=== PATIENT | male | born 1940 | race Hispanic/Latino ===

== ENCOUNTER 2019-04-26 13:25 | Emergency (ER) | payer OTHER ==
--- NOTE | 2019-04-26 14:41 | RAD REPORT ---
EXAM DESCRIPTION: RAD - Chest Single View - 04/26/2019 2:27 pm CLINICAL HISTORY: pleuritic pain Chest pain. COMPARISON: Chest Pa And Lat (2 Views) dated 10/17/2016; CHEST PA AND LAT 2 VIEW dated 02/07/2009 FINDINGS: Portable technique limits examination quality. Opacities are present in both lung bases, greater on the right, with a small right pleural effusion. Findings are suspicious for aspiration or pneumonia. The heart is normal in size. No displaced fractu res.
[2019-04-26 14:50] LABS: Absolute Lymphocytes (CBC) 2.1 K/uL (0.7-4.9); Basophils % 0.5 % (0-1.3); Hematocrit 41.5 % (39.6-49.0); Lymphocytes % 25.3 % (15.3-44.8); MPV 8.9 fL (7.6-11.3); RBC Red Blood Cell Count 4.65 M/uL (4.33-5.43)
[2019-04-26 15:06] LABS: Albumin 3.4 g/dL (3.4-5.0); Bilirubin Direct 0.1 mg/dL (0-0.2); Bilirubin Total 0.6 mg/dL (0.2-1.0); Potassium 4.1 mmol/L (3.5-5.1); Protein, Total 7.8 g/dL (6.4-8.2)
--- NOTE | 2019-04-26 16:17 | RAD REPORT ---
EXAM DESCRIPTION: CT - Angio Aorta For Dissection - 04/26/2019 3:39 pm CLINICAL HISTORY: back pain radiating up to neck COMPARISON: Chest films same date TECHNIQUE: Dynamically enhanced 3 mm thick images of the chest, abdomen, and upper pelvis were obtai josefina during administration of approximately 150mL Isovue 370 IV contrast. Sagittal and coronal reconst ruction images were generated using MIP and reviewed. Exam utilizes a protocol to evaluate entire cou rse of the aorta. All CT scans are performed using dose optimization technique as appropriate and may include automated exposure control or mA/KV adjustment according to patient size. FINDINGS: Aorta is normal in diameter with no dissection or other acute aortic findings. Reconstruct ion images show no significant findings. Pulmonary arteries are normal as well. No cardiomegaly, pericardial thickening or pericardial effusio n. Posterior gutter atelectasis changes present. No acute lung parenchymal process. No pleural thickenin g, pleural effusion or pneumothorax. No abnormal mediastinal or hilar mass or lymphadenopathy seen. No chest wall mass or abnormal axillar y lymphadenopathy. Celiac, SMA and renal arteries show no suspicious findings. Solid abdominal viscera and bowel show no significant findings. Fatty infiltration changes in the liver. Prominent diverticulosis without dive rticulitis. No mass or abnormal lymphadenopathy. No free air, free fluid or inflammatory stranding. No urinary bladder abnormality. Prominent degenerative change L5-S1 disc level. IMPRESSION: Negative CT scan of the aorta. Posterior gutter atelectasis. No acute lung parenchymal process.
[2019-04-26 16:22] LABS: Urine Blood NEGATIVE (NEG); Urine Glucose NEGATIVE (NEG); Urine Protein NEGATIVE (NEG); Urine Specific Gravity 1.025 (1.005-1.030)
[2019-04-26 16:23] LABS: Urine Bacteria <20 /HPF (NONE SEEN); Urine RBC <5 /HPF (NONE SEEN)
[2019-04-26 16:24] LABS: Urine Culture Reflex Order NOT NEEDED
--- NOTE | 2019-04-26 16:55 | EKG ---
Test Date: 2019-04-26 Test Time: 14:25:14 Plug Overwrap Machine Tender: CRISTOBAL MEASUREMENT RESULTS: Intervals: Rate: 82 AK: 126 QRSD: 78 QT: 370 QTc: 432 [place]: P: 41 AK: 126 QRS: 2 T: 43 INTERPRETIVE STATEMENTS: Sinus rhythm with premature atrial complexes Otherwise normal ECG Compared to ECG 10/17/2016 08:36:48 Atrial premature complex(es) now present Electronically Signed On 04-26-19 16:55:06 CDT by Mukesh Lezama
--- NOTE | 2019-04-26 17:13 | ER ---
Nurse's Notes [facility] Name: Sobia Stoll Age: 78 yrs Sex: Male : 1940 Arrival Date: 04/26/2019 Time: 13:33 Bed 6 Private MD: Diagnosis: Muscle spasm of back;Atelectasis Presentation: 04/26 13:35 Presenting complaint: Patient states: "I started with back pain (left low back) and now aa5 the pain is on my right shoulder and my stomach (RUQ)". Pt denies nausea/vomiting. Pt also reports decreased appetite x 1 month ago. Pt states "I am going through a very difficult time right now, I lost my and a daughter at the same time". Transition of care: patient was not received from another setting of care. Onset of symptoms was April 2019. Risk Assessment: Do you want to hurt yourself or someone else? Patient reports no desire to harm self or others. Initial Sepsis Screen: Does the patient meet any 2 criteria? No. Patient's initial sepsis screen is negative. Does the patient have a suspected source of infection? No. Patient's initial sepsis screen is negative. Care prior to arrival: None. 13:35 Acuity: ALTA 3 aa5 13:35 Method Of Arrival: Ambulatory aa5 Historical: - Allergies: 13:34 No Known Allergies; aa5 - Home Meds: 13:34 None [Active]; aa5 - PMHx: 13:34 None; aa5 - PSHx: 13:34 Hernia repair; aa5 - Immunization history:: Adult Immunizations unknown. - Social history:: Smoking status: Patient/guardian denies using tobacco. - Ebola Screening: : No symptoms or risks identified at this time. - Family history:: not pertinent. - Hospitalizations: : No recent hospitalization is reported. Screenin:20 Abuse screen: Denies threats or abuse. Denies injuries from another. Nutritional ph screening: No deficits noted. Nutritional screening: decreased appetite x 1 month. Tuberculosis screening: No symptoms or risk factors identified. Fall Risk None identified. Assessment: 14:17 General: Appears in no apparent distress. uncomfortable, well groomed, Behavior is ph calm, cooperative, appropriate for age, Denies fever. Pain: Complains of pain in right upper quadrant Pain radiates to R shoulder and back. Neuro: Level of Consciousness is awake, alert, obeys commands, Oriented to person, place, time, situation. Cardiovascular: Denies chest pain, nausea, shortness of breath, vomiting, Capillary refill < 3 seconds in bilateral fingers Patient's skin is warm and dry. Respiratory: Airway is patent Respiratory effort is even, unlabored. GI: Abdomen is round Abd is non tender X 4 quads Reports upper abdominal pain, constipation, diarrhea, Patient currently denies bloody stool, nausea, vomiting. : Reports pain in right in lower back Denies burning with urination, urinary frequency. Derm: Skin is intact, Skin is pink, warm \\T\\ dry. Musculoskeletal: Circulation, motion, and sensation intact. Range of motion: intact in all extremities. 15:49 Reassessment: Patient appears in no apparent distress at this time. Patient and/or iw family updated on plan of care and expected duration. Pain level reassessed. Patient is alert, oriented x 3, equal unlabored respirations, skin warm/dry/pink. pt returned from Ct, urine specimen collected. 17:10 Reassessment: Patient appears in no apparent distress at this time. Patient and/or ph family updated on plan of care and expected duration. Pain level reassessed. Patient is alert, oriented x 3, equal unlabored respirations, skin warm/dry/pink. Pt d/c home w/family. Vital Signs: 13:35 BP 132 / 69; Pulse 87; Resp 18 S; Temp 98.5(TE); Pulse Ox 97% on R/A; Weight 81.65 kg aa5 (R); Pain 5/10; 14:30 BP 134 / 71; Pulse 72; Resp 20; Pulse Ox 98% on R/A; ph 16:09 BP 137 / 72; Pulse 68; Resp 18; Pulse Ox 99% on R/A; ph 17:11 BP 136 / 72; Pulse 70; Resp 16; Temp 98.4; Pulse Ox 100% on R/A; ph ED Course: 13:33 Patient arrived in ED. aa5 13:34 Arm band placed on. aa5 13:38 Triage completed. aa5 13:57 Yadira Gill, RN is Primary Nurse. ph 13:59 Patient has correct armband on for positive identification. Bed in low position. Call ph light in reach. Side rails up X2. Pulse ox on. NIBP on. Door closed. Noise minimized. Warm blanket given. 14:00 Initial lab(s) drawn, by me, sent to lab. Inserted saline lock: 20 gauge in right iw antecubital area, using aseptic technique. Blood collected. 14:02 Dl Hoover MD is Attending Physician. rn 14:26 XRAY Chest (1 view) In Process Unspecified. EDMS 14:28 EKG done, by mathematical technician. reviewed by Dl Hoover MD. 3 15:40 CT Aorta for Dissection In Process Unspecified. EDMS 17:07 No provider procedures requiring assistance completed. IV discontinued, intact, iw bleeding controlled, No redness/swelling at site. Pressure dressing applied. Administered Medications: No medications were administered Outcome: 16:57 Discharge ordered by MD. rn 17:11 Discharged to home ambulatory, with family. ph 17:11 Condition: good 17:11 Discharge instructions given to patient, Instructed on discharge instructions, follow up and referral plans. medication usage, Demonstrated understanding of instructions, follow-up care, medications, Prescriptions given X 2. 17:12 Patient left the ED. ph Signatures: Dispatcher [employer] EDMS Connie Redman, RN SUNSHINE iw Dl Hoover MD MD rn Calderon, Audri, RN RN Yadira Whitaker RN RN Kim Nelson 3
--- NOTE | 2019-04-26 17:13 | EDPHYS ---
Physician Documentation [facility] Name: Sobia Stoll Age: 78 yrs Sex: Male : 1940 Arrival Date: 04/26/2019 Time: 13:33 Bed 6 Private MD: ED Physician Dl Hoover HPI: 04/26 14:38 This 78 yrs old Male presents to ER via Ambulatory with complaints of Back rn Pain, Abdominal Pain. 14:38 The patient presents with pain that is acute, with no known mechanism of injury. rn 14:39 The symptoms are located in the left mid back and right mid back. Onset: The rn symptoms/episode began/occurred 3 day(s) ago. The pain radiates to the abdomen and neck. Associated signs and symptoms: Pertinent positives: abdominal pain, Pertinent negatives: chest pain, fever, headache, hematuria, incontinence, nausea, numbness, tingling, urinary retention, vomiting, weakness. The problem was sustained from unknown cause. Modifying factors: The patient symptoms are alleviated by nothing, the patient symptoms are aggravated by any movement. Severity of symptoms: At their worst the symptoms were moderate, in the emergency department the symptoms have improved. The patient has not experienced similar symptoms in the past. Family member states hasn't seen a doctor, recently began complaining of bilateral flank pain that radiates to abdomen and neck, no chest pain. No fever/cough/sob. NO vomiting/diarrhea. Reports moves around and worse with palpation and movement.. Historical: - Allergies: 13:34 No Known Allergies; aa5 - Home Meds: 13:34 None [Active]; aa5 - PMHx: 13:34 None; aa5 - PSHx: 13:34 Hernia repair; aa5 - Immunization history:: Adult Immunizations unknown. - Social history:: Smoking status: Patient/guardian denies using tobacco. - Ebola Screening: : No symptoms or risks identified at this time. - Family history:: not pertinent. - Hospitalizations: : No recent hospitalization is reported. ROS: 14:39 Constitutional: Negative for fever, chills, and weight loss, Eyes: Negative for injury, rn pain, redness, and discharge, Neck: Negative for injury, and swelling, Cardiovascular: Negative for chest pain, palpitations, and edema, Respiratory: Negative for shortness of breath, cough, wheezing, and pleuritic chest pain, Abdomen/GI: Negative for nausea, vomiting, diarrhea, and constipation, MS/Extremity: Negative for injury and deformity, Skin: Negative for injury, rash, and discoloration, Neuro: Negative for weakness, numbness, tingling, and seizure. Exam: 14:39 Constitutional: This is a well developed, well nourished patient who is awake, alert, rn and in no acute distress. Pain when trying to go from sitting to laying position and lay down. Head/Face: Normocephalic, atraumatic. Eyes: Pupils equal round and reactive to light, extra-ocular motions intact. Lids and lashes normal. Conjunctiva and sclera are non-icteric and not injected. Cornea within normal limits. Periorbital areas with no swelling, redness, or edema. ENT: MMM Neck: Trachea midline, no thyromegaly or masses palpated, and no cervical lymphadenopathy. Supple, full range of motion without nuchal rigidity, or vertebral point tenderness. No Meningismus. Cardiovascular: Regular rate and rhythm. No pulse deficits. Respiratory: Lungs have equal breath sounds bilaterally, clear to auscultation. No increased work of breathing, no retractions or nasal flaring. Abdomen/GI: soft, non-tender Back: No spinal tenderness. No costovertebral tenderness. Full range of motion. MS/ Extremity: Pulses equal, no cyanosis. Neurovascular intact. Full, normal range of motion. Equal circumference. Neuro: Awake and alert, GCS 15, oriented to person, place, time, and situation. Cranial nerves II-XII grossly intact. Motor strength 5/5 in all extremities. Sensory grossly intact. Cerebellar exam normal. Normal gait. Vital Signs: 13:35 BP 132 / 69; Pulse 87; Resp 18 S; Temp 98.5(TE); Pulse Ox 97% on R/A; Weight 81.65 kg aa5 (R); Pain 5/10; 14:30 BP 134 / 71; Pulse 72; Resp 20; Pulse Ox 98% on R/A; ph 16:09 BP 137 / 72; Pulse 68; Resp 18; Pulse Ox 99% on R/A; ph 17:11 BP 136 / 72; Pulse 70; Resp 16; Temp 98.4; Pulse Ox 100% on R/A; ph MDM: 14:02 Patient medically screened. rn 16:48 Differential diagnosis: osteoarthritis, pleurisy, pneumonia, muscle spasm, muscle rn strain. Data reviewed: vital signs, nurses notes, lab test result(s), EKG, radiologic studies, CT scan, plain films, and as a result, I will discharge patient. Counseling: I had a detailed discussion with the patient and/or guardian regarding: the historical points, exam findings, and any diagnostic results supporting the discharge/admit diagnosis, lab results, radiology results, the need for outpatient follow up, to return to the emergency department if symptoms worsen or persist or if there are any questions or concerns that arise at home. Special discussion: I discussed with the patient/guardian in detail that at this point there is no indication for admission to the hospital. It is understood, however, that if the symptoms persist or worsen the patient needs to return immediately for re-evaluation. ED course: Neg ct aorta, normal vitals, most likely muscular spasm/strain given moves around and worse with movement, neg UA, will dc home with muscle relaxers and pcp f/u for standard screening exams.. 04/26 14:09 Order name: Basic Metabolic Panel; Complete Time: 16:22 rn 04/26 14:09 Order name: CBC with Diff; Complete Time: 14:54 rn 04/26 14:09 Order name: Creatinine for Radiology; Complete Time: 16:22 rn 04/26 14:09 Order name: Hepatic Function; Complete Time: 16:22 rn 04/26 14:09 Order name: Lipase; Complete Time: 16:22 rn 04/26 14:09 Order name: Urine Microscopic Only; Complete Time: 16:41 rn 04/26 14:09 Order name: IV Saline Lock; Complete Time: 14:35 rn 04/26 14:09 Order name: Labs collected and sent; Complete Time: 14:35 rn 04/26 14:09 Order name: EKG; Complete Time: 14:10 rn 04/26 14:09 Order name: XRAY Chest (1 view); Complete Time: 14:54 rn 04/26 14:09 Order name: CT Aorta for Dissection; Complete Time: 16:41 rn 04/26 14:54 Order name: Blood Culture Adult (2) rn 04/26 14:54 Order name: Procalcitonin; Complete Time: 16:41 rn 04/26 15:55 Order name: Urine Dipstick--Ancillary (enter results); Complete Time: 16:41 bd 04/26 14:09 Order name: Urine Dipstick-Ancillary (obtain specimen); Complete Time: 15:49 rn 04/26 14:09 Order name: EKG - Nurse/Tech; Complete Time: 14:35 rn Administered Medications: No medications were administered Disposition: 04/26/19 16:57 Discharged to Home. Impression: Muscle spasm of back, Atelectasis. - Condition is Stable. - Discharge Instructions: Atelectasis, Adult, Muscle Cramps and Spasms, Back Exercises, [id number]. - Prescriptions for Ultram 50 mg Oral Tablet - take 1 tablet by ORAL route every 6 hours As needed; 20 tablet. Cyclobenzaprine 10 mg Oral Tablet - take 1 tablet by ORAL route every 8 hours As needed; 20 tablet. - Medication Reconciliation Form, Thank You Letter, Antibiotic Education, Prescription Opioid Use form. - Follow up: Private Physician; When: As needed; Reason: Recheck today's complaints, Re-evaluation by your physician. - Problem is new. - Symptoms have improved. Signatures: Dispatcher [employer] EDMS Dl Hoover MD MD rn Calderon, Amanda RN RN aa5 Yadira Gill RN RN ph Corrections: (The following items were deleted from the chart) 14:42 14:39 Constitutional: This is a well developed, well nourished patient who is awake, rn alert, and in no acute distress. Head/Face: Normocephalic, atraumatic. Eyes: Pupils equal round and reactive to light, extra-ocular motions intact. Lids and lashes normal. Conjunctiva and sclera are non-icteric and not injected. Cornea within normal limits. Periorbital areas with no swelling, redness, or edema. ENT: MMM Neck: Trachea midline, no thyromegaly or masses palpated, and no cervical lymphadenopathy. Supple, full range of motion without nuchal rigidity, or vertebral point tenderness. No Meningismus. Cardiovascular: Regular rate and rhythm. No pulse deficits. Respiratory: Lungs have equal breath sounds bilaterally, clear to auscultation. No increased work of breathing, no retractions or nasal flaring. Abdomen/GI: soft, non-tender Back: No spinal tenderness. No costovertebral tenderness. Full range of motion. MS/ Extremity: Pulses equal, no cyanosis. Neurovascular intact. Full, normal range of motion. Equal circumference. Neuro: Awake and alert, GCS 15, oriented to person, place, time, and situation. Cranial nerves II-XII grossly intact. Motor strength 5/5 in all extremities. Sensory grossly intact. Cerebellar exam normal. Normal gait. rn 17:12 16:57 04/26/2019 16:57 Discharged to Home. Impression: Muscle spasm of back; ph Atelectasis. Condition is Stable. Forms are Medication Reconciliation Form, Thank You Letter, Antibiotic Education, Prescription Opioid Use. Follow up: Private Physician; When: As needed; Reason: Recheck today's complaints, Re-evaluation by your physician. Problem is new. Symptoms have improved. rn
[2019-04-26 19:42] VITALS: BP 136/72; TEMP 98.4; O2SAT 100
== END 2019-04-26 17:12 | disposition home or self-care (01) ==
LOC: ER 13:25
DX: M62.830 Muscle spasm of back (principal); J98.11 Atelectasis
CPT/HCPCS: 93005; 87040 ×2; 85025; 80048; 36415; 80076; 83690; 84145; 71275; 74175; 71045; 99284; Q9967; 81003; 81015

== ENCOUNTER 2020-12-09 14:00 | Emergency (ER) | payer OTHER ==
--- OUTSIDE RECORDS SUMMARY | 2020-12-09 14:03 | XMS REPORT | Continuity of Care Document ---
:1940 Author Organization [facility] t Address [address] [place] [address] [address] [place] [address] Care Team Providers Name Role Phone Dae Lam DO Attending Clinician Janes Lee MD Attending Clinician Problems This patient has no known problems. Allergies, Adverse Reactions, Alerts This patient has no known allergies or adverse reactions. Medications This patient has no known medications. Procedures This patient has no known procedures. Encounters Start End Encounter Admission Attending Care Care Encounter Source Date/Time Date/Time Type Type Clinicians Facility Department ID 2020-09-10 2020-09-10 Patient ARELI Lam [id number] 00:00:00 00:00:00 Outreach [facility] [id number] Dae [facility] [id number] [place] [id number] 2020-05-02 2020-05-02 Office ARELI Lee [id number] 18 12:47:48 13:46:35 Visit Cheryl Pritchett [id number] [place] [id number] [place] [id number] nal 059 Building Results This patient has no known results.
[2020-12-09 18:19] LABS: Absolute Lymphocytes (CBC) 2.2 K/uL (0.7-4.9); Basophils % 0.5 % (0-1.3); Hematocrit 42.4 % (39.6-49.0); Lymphocytes % 25.9 % (15.3-44.8); MPV 9.3 fL (7.6-11.3); RBC Red Blood Cell Count 4.89 M/uL (4.33-5.43)
[2020-12-09] MEDS ORDERED: KETOROLAC 30 MG/ML INJ ONE (18:39)
[2020-12-09 18:52] LABS: ALT/SGPT 32 U/L (12-78); Alkaline Phosphatase 53 U/L (45-117); BUN Blood Urea Nitrogen 20 mg/dL (7-18); Bicarbonate 25 mmol/L (21-32); Bilirubin Total 0.4 mg/dL (0.2-1.0); Glucose Level 102 mg/dL (74-106); Protein, Total 8.5 g/dL (6.4-8.2); Sodium Level 139 mmol/L (136-145); Uric Acid 5.2 mg/dL (3.5-7.2)
--- NOTE | 2020-12-09 18:52 | RAD REPORT ---
EXAM DESCRIPTION: RAD - Elbow Left 3 View - 12/09/2020 6:44 pm CLINICAL HISTORY: PAIN COMPARISON: No comparisons FINDINGS: Moderate degenerative changes are present involving the left elbow. No fracture, dislocati on or aggressive marrow lesion.
[2020-12-09 18:53] LABS: AST/SGOT 21 U/L (15-37); Potassium 4.2 mmol/L (3.5-5.1)
--- NOTE | 2020-12-09 18:59 | ER ---
Nurse's Notes [facility] Name: Sobia Stoll Age: 80 yrs Sex: Male : 1940 Arrival Date: 12/09/2020 Time: 14:09 Bed 23 Private MD: Diagnosis: Pain in left elbow;Pain in elbow;Effusion, left elbow;Osteoarthritis, unspecified site-left elbow Presentation: 12/09 14:14 Chief complaint: Patient states: L arm pain from elbow to shoulder for 2 days. No known ss trauma or falls. Received his 1st covid vaccine in his L deltoid 11/30. Coronavirus screen: Client denies travel out of the [place] in the last 14 days. At this time, the client does not indicate any symptoms associated with coronavirus-19. Ebola Screen: Patient denies travel to an Ebola-affected area in the 21 days before illness onset. Initial Sepsis Screen: Does the patient meet any 2 criteria? No. Patient's initial sepsis screen is negative. Does the patient have a suspected source of infection? Yes: Bone or joint infection. Risk Assessment: Do you want to hurt yourself or someone else? Patient reports no desire to harm self or others. Onset of symptoms was December 08, 2020. 14:14 Method Of Arrival: Ambulatory ss 14:14 Acuity: ALTA 3 ss Historical: - Allergies: 14:16 No Known Allergies; ss - PMHx: 14:16 None; ss - PSHx: 14:16 Hernia repair; ss - Immunization history:: Client reports receiving the 1st dose of the Covid vaccine, Flu vaccine is not up to date. - Social history:: Smoking status: Patient denies any tobacco usage or history of. - Family history:: not pertinent. Screenin:00 Abuse screen: Denies threats or abuse. Nutritional screening: No deficits noted. bb Tuberculosis screening: No symptoms or risk factors identified. Fall Risk None identified. Assessment: 18:00 General: Appears in no apparent distress. uncomfortable, Behavior is calm, cooperative. bb Pain: Complains of pain in left arm. Neuro: Level of Consciousness is awake, alert, obeys commands, Oriented to person, place, time, situation. Cardiovascular: Capillary refill < 3 seconds Patient's skin is warm and dry. Respiratory: Respiratory effort is even, unlabored, Respiratory pattern is regular. Derm: Skin is pink, warm \T\ dry. Musculoskeletal: Circulation, motion, and sensation intact. Reports pain in left arm. 18:46 Reassessment: pt states he is feeling better. bb 18:55 Reassessment: pt vomiting Dr Rae notified new orders received pt medicated see OCT.bb 19:24 Reassessment: Patient is alert, oriented x 3, equal unlabored respirations, skin bb warm/dry/pink. pt and family verbalized understanding of and agrees to plan of care discharge instructions given pt ambulated with steady gait to exit accompanied by family Patient states feeling better. Patient states symptoms have improved. Vital Signs: 14:14 BP 131 / 73; Pulse 89; Resp 17; Temp 98.7; Pulse Ox 99% ; Weight 84.37 kg; Height 5 ft. ss 6 in. (167.64 cm); Pain 9/10; 18:45 BP 139 / 73; Pulse 77; Resp 18 S; Pulse Ox 94% on R/A; bb 19:25 BP 110 / 85; Pulse 81; Resp 18 S; Temp 98.5(O); Pulse Ox 95% on R/A; Pain 5/10; bb 14:14 Body Mass Index 30.02 (84.37 kg, 167.64 cm) ss ED Course: 14:09 Patient arrived in ED. mr 14:16 Triage completed. ss 14:17 Arm band placed on. ss 17:49 Kiel Rae MD is Attending Physician. angelita 18:06 Initial lab(s) drawn, by ks, sent to lab. Inserted saline lock: 20 gauge in right jp3 antecubital area, using aseptic technique. Blood collected. Patient maintains SpO2 saturation greater than 95% on room air. 18:16 Bed in low position. Call light in reach. Side rails up X 1. Ice pack to injury. Verbal jp3 reassurance given. Pulse ox on. NIBP on. 18:16 Wound care: ice pack applied. Patient tolerated well. jp3 18:43 Elbow Left 3 View XRAY In Process Unspecified. EDMS 18:44 Azalea Curran, SUNSHINE is Primary Nurse. bb 18:59 Abhinav Bose MD is Referral Physician. angelita 19:25 IV discontinued, intact, bleeding controlled, No redness/swelling at site. Pressure bb dressing applied. 19:25 No provider procedures requiring assistance completed. bb Administered Medications: 18:25 Drug: TORadol (ketorolac) 30 mg Route: IVP; Site: right antecubital; bb 18:46 Follow up: Response: Pain is decreased bb 18:51 Drug: SOLU-Medrol (methylPrednisoLONE) 125 mg Route: IVP; Site: right antecubital; bb 19:23 Follow up: Response: No adverse reaction bb 18:52 Drug: [place] (HYDROcodone-acetaminophen) (7.5 mg-325 mg) 1 tabs {Note: RASS 0.} Route: bb PO; 19:23 Follow up: Response: No adverse reaction bb 18:56 Drug: Zofran (Ondansetron) 4 mg Route: IVP; Site: right antecubital; bb 19:24 Follow up: Response: No adverse reaction bb Outcome: 18:59 Discharge ordered by MD. goldstein 19:25 Discharged to home ambulatory, with family. bouchra 19:25 Condition: stable 19:25 Discharge instructions given to patient, family, Instructed on discharge instructions, follow up and referral plans. no driving heavy equipment, medication usage, Demonstrated understanding of instructions, follow-up care, medications, Prescriptions given X 4. 19:26 Patient left the ED. bb Signatures: Dispatcher [employer] EDMS Kiel Rae MD MD cha Rivera Cris mr Azalea Curran, RN RN Khadijah Vora RN RN Migel Jean jp3 Corrections: (The following items were deleted from the chart) 18:17 18:16 Inserted saline lock: 20 gauge in right antecubital area, using aseptic jp3 technique. Blood collected. jp3 18:17 18:16 Initial lab(s) drawn, by ks, sent to lab. jp3 jp3 18:17 18:16 Patient maintains SpO2 saturation greater than 95% on room air. jp3 jp3
--- NOTE | 2020-12-09 18:59 | EDPHYS ---
Physician Documentation [facility] Name: Sobia Stoll Age: 80 yrs Sex: Male : 1940 Arrival Date: 12/09/2020 Time: 14:09 Bed 23 Private MD: ED Physician Kiel Rae HPI: 12/09 18:09 This 80 yrs old Male presents to ER via Ambulatory with complaints of Arm Pain.angelita 18:09 The patient or guardian complains of decreased range of motion, pain, swelling. The angelita complaints affect the left elbow. Context: The problem was sustained at an unknown location, resulted from unknown cause. Onset: The symptoms/episode began/occurred 1 day(s) ago. Treatment prior to arrival includes: no previous treatment. Modifying factors: The symptoms are alleviated by remaining still, the symptoms are aggravated by movement, bending arm. Severity of symptoms: At their worst the symptoms were mild, moderate, in the emergency department the symptoms are unchanged. The patient has not experienced similar symptoms in the past. Historical: - Allergies: 14:16 No Known Allergies; ss - PMHx: 14:16 None; ss - PSHx: 14:16 Hernia repair; ss - Immunization history:: Client reports receiving the 1st dose of the Covid vaccine, Flu vaccine is not up to date. - Social history:: Smoking status: Patient denies any tobacco usage or history of. - Family history:: not pertinent. ROS: 18:09 Constitutional: Negative for fever, chills, and weight loss, Eyes: Negative for injury, angelita pain, redness, and discharge, ENT: Negative for injury, pain, and discharge, Neck: Negative for injury, pain, and swelling, Cardiovascular: Negative for chest pain, palpitations, and edema, Respiratory: Negative for shortness of breath, cough, wheezing, and pleuritic chest pain, Abdomen/GI: Negative for abdominal pain, nausea, vomiting, diarrhea, and constipation, Back: Negative for injury and pain, : Negative for injury, bleeding, discharge, and swelling, Skin: Negative for injury, rash, and discoloration, Neuro: Negative for headache, weakness, numbness, tingling, and seizure, Psych: Negative for depression, anxiety, suicide ideation, homicidal ideation, and hallucinations, Allergy/Immunology: Negative for hives, rash, and allergies, Endocrine: Negative for neck swelling, polydipsia, polyuria, polyphagia, and marked weight changes, Hematologic/Lymphatic: Negative for swollen nodes, abnormal bleeding, and unusual bruising. 18:09 MS/extremity: Positive for decreased range of motion, pain, swelling, tenderness, of the left elbow. Exam: 18:09 Constitutional: This is a well developed, well nourished patient who is awake, alert, angelita and in no acute distress. Head/Face: Normocephalic, atraumatic. Eyes: Pupils equal round and reactive to light, extra-ocular motions intact. Lids and lashes normal. Conjunctiva and sclera are non-icteric and not injected. Cornea within normal limits. Periorbital areas with no swelling, redness, or edema. ENT: Nares patent. No nasal discharge, no septal abnormalities noted. Tympanic membranes are normal and external auditory canals are clear. Oropharynx with no redness, swelling, or masses, exudates, or evidence of obstruction, uvula midline. Mucous membranes moist. Neck: Trachea midline, no thyromegaly or masses palpated, and no cervical lymphadenopathy. Supple, full range of motion without nuchal rigidity, or vertebral point tenderness. No Meningismus. Chest/axilla: Normal chest wall appearance and motion. Nontender with no deformity. No lesions are appreciated. Cardiovascular: Regular rate and rhythm with a normal S1 and S2. No gallops, murmurs, or rubs. Normal PMI, no JVD. No pulse deficits. Respiratory: Lungs have equal breath sounds bilaterally, clear to auscultation and percussion. No rales, rhonchi or wheezes noted. No increased work of breathing, no retractions or nasal flaring. Abdomen/GI: Soft, non-tender, with normal bowel sounds. No distension or tympany. No guarding or rebound. No evidence of tenderness throughout. Back: No spinal tenderness. No costovertebral tenderness. Full range of motion. Skin: Warm, dry with normal turgor. Normal color with no rashes, no lesions, and no evidence of cellulitis. Neuro: Awake and alert, GCS 15, oriented to person, place, time, and situation. Cranial nerves II-XII grossly intact. Motor strength 5/5 in all extremities. Sensory grossly intact. Cerebellar exam normal. Normal gait. Psych: Awake, alert, with orientation to person, place and time. Behavior, mood, and affect are within normal limits. 18:09 Neuro: Orientation: is normal, appropriate for stated age, no acute changes, Mentation: is normal, appropriate for stated age, no acute changes, Memory: is normal, appropriate for stated age, no acute changes, Cranial nerves: grossly normal, is grossly normal based on the patient's age, no acute changes, Cerebellar function: is grossly normal, is grossly normal based on the patient's age, Motor: is normal, is grossly normal based on the patient's age, no acute changes, Sensation: no obvious gross deficits, appropriate no acute changes, numbness, is not appreciated, Gait: not applicable is steady, appropriate for age, Deep tendon reflexes are 2+ (normal) in the bilateral brachioradialis, bicep, tricep and patellar and Achilles tendons, Babinski testing is normal, seizure activity, is not displayed by the patient. Vital Signs: 14:14 BP 131 / 73; Pulse 89; Resp 17; Temp 98.7; Pulse Ox 99% ; Weight 84.37 kg; Height 5 ft. ss 6 in. (167.64 cm); Pain 9/10; 18:45 BP 139 / 73; Pulse 77; Resp 18 S; Pulse Ox 94% on R/A; bb 19:25 BP 110 / 85; Pulse 81; Resp 18 S; Temp 98.5(O); Pulse Ox 95% on R/A; Pain 5/10; bb 14:14 Body Mass Index 30.02 (84.37 kg, 167.64 cm) ss MDM: 17:49 Patient medically screened. angelita 18:12 Differential diagnosis: closed fracture, contusion, tendonitis. Data reviewed: vital angelita signs, nurses notes, lab test result(s), radiologic studies, plain films. Data interpreted: teletypesetter monitor: not applicable for this patient encounter. rate is 89 beats/min, rhythm is regular, Pulse oximetry: on room air is 99 %. Test interpretation: by ED physician or midlevel provider: plain radiologic studies. Counseling: I had a detailed discussion with the patient and/or guardian regarding: the historical points, exam findings, and any diagnostic results supporting the discharge/admit diagnosis, lab results, radiology results, the need for outpatient follow up, for definitive care, a orthopedic surgeon. 12/09 18:07 Order name: CBC with Diff [facility] 12/09 18:07 Order name: Comprehensive Metabolic Panel [facility] 12/09 18:07 Order name: Uric Acid; Complete Time: 18:58 [facility] 12/09 18:07 Order name: Elbow Left 3 View XRAY; Complete Time: 18:58 [facility] 12/09 18:08 Order name: CBC with Automated Diff; Complete Time: 18:43 EDMS 12/09 18:08 Order name: Comprehensive Metabolic Panel; Complete Time: 18:58 EDMS 12/09 18:07 Order name: Ice pack; Complete Time: 18:17 [facility] Administered Medications: 18:25 Drug: TORadol (ketorolac) 30 mg Route: IVP; Site: right antecubital; bb 18:46 Follow up: Response: Pain is decreased bb 18:51 Drug: SOLU-Medrol (methylPrednisoLONE) 125 mg Route: IVP; Site: right antecubital; bb 19:23 Follow up: Response: No adverse reaction bb 18:52 Drug: [place] (HYDROcodone-acetaminophen) (7.5 mg-325 mg) 1 tabs {Note: RASS 0.} Route: bb PO; 19:23 Follow up: Response: No adverse reaction bb 18:56 Drug: Zofran (Ondansetron) 4 mg Route: IVP; Site: right antecubital; bb 19:24 Follow up: Response: No adverse reaction bb Disposition: 12/09/20 18:59 Discharged to Home. Impression: Pain in left elbow, Pain in elbow, Effusion, left elbow, Osteoarthritis, unspecified site - left elbow. - Condition is Stable. - Discharge Instructions: Joint Pain, Arthritis, Musculoskeletal Pain, Cryotherapy, [id number], Cryotherapy, Joint Pain, [id number]. - Prescriptions for indomethacin 25 mg Oral capsule - take 1 capsule by ORAL route 3 times per day with food; 21 capsule. Tylenol- Codeine #3 300-30 mg Oral Tablet - take 2 tablets by ORAL route every 4-6 hours As needed; 20 tablet. Medrol (Renzo) 4 mg Oral Tablets, Dose Pack - take 1 tablet by ORAL route as directed - follow package instructions; 1 packet. Zofran 4 mg Oral Tablet - take 1 tablet by ORAL route every 12 hours As needed; 20 tablet. - Medication Reconciliation Form, Thank You Letter, Antibiotic Education, Prescription Opioid Use form. - Follow up: Private Physician; When: 2 - 3 days; Reason: Recheck today's complaints, Continuance of care, Re-evaluation by your physician. Follow up: Dr. Abhinav Bose; When: 1 - 2 days; Reason: Recheck today's complaints, Re-evaluation by your physician. - Problem is new. - Symptoms have improved. Signatures: Dispatcher [employer] EDNY Kiel Rae MD MD cha Ballard, Brenda, RN RN Khadijah Vora RN RN ss Corrections: (The following items were deleted from the chart) 19:26 18:59 12/09/2020 18:59 Discharged to Home. Impression: Pain in left elbow; Pain in bb elbow; Effusion, left elbow; Osteoarthritis, unspecified site - left elbow. Condition is Stable. Discharge Instructions: Joint Pain, Musculoskeletal Pain, Cryotherapy, [id number], Cryotherapy, Joint Pain, [id number]-zd-[id number], Arthritis. Prescriptions for indomethacin 25 mg Oral capsule - take 1 capsule by ORAL route 3 times per day with food; 21 capsule, Tylenol-Codeine #3 300-30 mg Oral Tablet - take 2 tablets by ORAL route every 4-6 hours As needed; 20 tablet, Medrol (Renzo) 4 mg Oral Tablets, Dose Pack - take 1 tablet by ORAL route as directed - follow package instructions; 1 packet, Zofran 4 mg Oral Tablet - take 1 tablet by ORAL route every 12 hours As needed; 20 tablet. and Forms are Medication Reconciliation Form, Thank You Letter, Antibiotic Education, Prescription Opioid Use. Follow up: Private Physician; When: 2 - 3 days; Reason: Recheck today's complaints, Continuance of care, Re-evaluation by your physician. Follow up: Dr. Abhinav Bose; When: 1 - 2 days; Reason: Recheck today's complaints, Re-evaluation by your physician. Problem is new. Symptoms have improved. angelita
[2020-12-09] MEDS ORDERED: HYDROCODONE/APAP 7.5/325 MG TAB ONE (19:06)
[2020-12-09] MEDS ORDERED: METHYLPREDNISOLONE 125 MG INJ ONE (19:06)
[2020-12-09] MEDS ORDERED: ONDANSETRON 4 MG/2 ML VIAL ONE (19:11)
[2020-12-09 19:39] VITALS: BP 110/85; TEMP 98.5; O2SAT 95
== END 2020-12-09 19:26 | disposition home or self-care (01) ==
LOC: ER 14:00
DX: M25.422 Effusion, left elbow (principal); M19.022 Primary osteoarthritis, left elbow
CPT/HCPCS: 85025; 36415; 84550; 80053; 73080; 96375; 96374; 99284; J2930; J2405

== ENCOUNTER 2022-10-09 16:33 | Emergency (ER) | payer OTHER ==
[2022-10-09] MEDS ORDERED: ACETAMINOPHEN 500 MG TAB ONE (16:56)
[2022-10-09] MEDS ORDERED: HYDROCODONE/APAP 10/325 TAB ONE (17:12)
[2022-10-09] MEDS ORDERED: DIAZEPAM 5 MG TABLET ONE (17:12)
--- NOTE | 2022-10-09 17:48 | RAD REPORT ---
EXAM DESCRIPTION: CT - [id number] - 10/09/2022 5:24 pm CLINICAL HISTORY: headache, neck pain COMPARISON: Head Brain Wo Cont dated 10/17/2016 TECHNIQUE: Axial thin cut noncontrast CT images of the head were obtained. Axial thin cut noncontrast CT images of the cervical spine were obtained. Multiplanar reformatted images were generated and reviewed. All CT scans are performed using dose optimization technique as appropriate and may include automated exposure control or mA/KV adjustment according to patient size. FINDINGS: CT HEAD WITHOUT CONTRAST: No acute hemorrhage, hydrocephalus or extra-axial collection is identified.No areas of brain edema or midline shift. Mild diffuse parenchymal volume loss. Ventricular caliber is stable. The paranasal sinuses and mastoids are clear.The calvarium is intact. CT CERVICAL SPINE WITHOUT CONTRAST: No fracture or subluxation.No prevertebral soft tissues swelling is identified. Moderate multilevel degenerative changes with endplate and facet remodeling and variable degrees of disc height loss. Fiona tral disc osteophyte complex at C6-7 may contribute to mild central bony canal stenosis. Variable deg niya of neural foraminal narrowing, up to moderate on the left at C6-7 and on the right at C5-6. IMPRESSION: No acute traumatic intracranial or cervical spine findings. Multilevel cervical spine degenerative changes as above. If there is concern for radiculopathy, addit ional evaluation by cervical spine MRI would provide improved assessment.
--- NOTE | 2022-10-09 19:07 | EDPHYS ---
Physician Documentation [facility] Name: Sobia Stoll Age: 81 yrs Sex: Male : 1940 Arrival Date: 10/09/2022 Time: 16:35 Bed 11 Private MD: DAWN Physician Kiel Rae HPI: 10/09 17:00 This 81 yrs old Male presents to ER via Ambulatory with complaints of Stiff jmm Neck, Jaw Pain, Headache. 17:00 The patient or guardian complains of pain. Onset: The symptoms/episode began/occurred jmm gradually, 3 day(s) ago. Associated signs and symptoms: Pertinent negatives: fever. The pain does not radiate. Is a 81-year-old male with history of hyperlipidemia the presents emerged part with complaints of neck pain which began approximately 3 days ago after a long bus ride. Denies fever. Patient states the neck pain radiates into the base of his skull.. Historical: - Allergies: 16:51 No Known Allergies; jh5 - PMHx: 16:51 Hypercholesterolemia; Osteoarthritis; [facility] - Immunization history:: Adult Immunizations up to date. - Social history:: Smoking status: Patient denies any tobacco usage or history of. ROS: 17:00 Constitutional: Negative for fever, chills, and weight loss. jmm 17:00 Neck: Positive for pain with movement. 17:00 All other systems are negative. Exam: 17:00 Constitutional: This is a well developed, well nourished patient who is awake, alert, jmm and in no acute distress. Head/Face: atraumatic. Eyes: EOMI, no conjunctival erythema appreciated ENT: Moist Mucus Membranes 17:00 Chest/axilla: Normal chest wall appearance and motion. Cardiovascular: Regular rate and rhythm. No edema appreciated Respiratory: Normal respirations, no respiratory distress appreciated Abdomen/GI: Non distended Back: Normal ROM Skin: General appearance color normal MS/ Extremity: Moves all extremities, no obvious deformities appreciated, no edema noted to the lower extremities Neuro: Awake and alert Psych: Behavior is normal, Mood is normal, Patient is cooperative and pleasant 17:00 Neck: ROM/movement: Painful range of motion noted to the cervical spine, paraspinal tenderness appreciated, no erythema or induration. Vital Signs: 16:48 BP 145 / 76; Pulse 85; Resp 16; Temp 98.4; Pulse Ox 97% ; Weight 81.65 kg; Height 5 ft. jh5 3 in. (160.02 cm); Pain 8/10; 16:48 Body Mass Index 31.89 (81.65 kg, 160.02 cm) [facility] MDM: 17:00 Patient medically screened. [facility] 19:04 Differential diagnosis: Meningitis, cervical radiculopathy, cervical s cervical jmm spondylosis, abscess, osteoarthritis, muscle spasm. Data reviewed: vital signs, nurses notes. I considered the following discharge prescriptions or medication management in the emergency department Medications were administered in the Emergency Department. See MAR. Counseling: I had a detailed discussion with the patient and/or guardian regarding: the historical points, exam findings, and any diagnostic results supporting the discharge/admit diagnosis, radiology results, the need for outpatient follow up, to return to the emergency department if symptoms worsen or persist or if there are any questions or concerns that arise at home. ED course: Pain partially alleviated in the ED. I did recommend changing pain medication. We will begin the patient on a course of steroids and different muscle relaxer. Advised to follow-up with spine surgery for further evaluation otherwise given strict return precautions.. 10/09 17:01 Order name: CT Head C Spine [facility] 10/09 17:49 Order name: CT; Complete Time: 17:56 EDMS Administered Medications: 17:11 Drug: Valium (diazepam) 5 mg Route: PO; ap3 18:27 Follow up: Response: No adverse reaction ap3 17:11 Drug: [place] (HYDROcodone-acetaminophen) 10 mg-325 mg 1 tabs Route: PO; ap3 18:27 Follow up: Response: No adverse reaction; Pain is decreased ap3 19:14 Drug: Decadron (dexamethasone) 10 mg Route: IM; Site: left deltoid; as6 Disposition Summary: 10/09/22 19:06 Discharge Ordered Location: Home [facility] Condition: Stable [facility] Diagnosis - Strain of muscle, fascia and tendon at neck level jm Followup: jmm - With: Private Physician - When: 2 - 3 days - Reason: Recheck today's complaints, Continuance of care, Re-evaluation by your physician Discharge Instructions: - Discharge Summary Sheet [facility] - Cervical Strain and Sprain Rehab-SportsMed [facility] Forms: - Medication Reconciliation Form [facility] - Thank You Letter [facility] - Antibiotic Education [facility] - Prescription Opioid Use [facility] Prescriptions: - Medrol (Renzo) 4 mg Oral Tablets, Dose Pack - take 1 tablet by ORAL route as directed - follow package instructions; 1 [facility] packet; Refills: 0, Product Selection Permitted - orphenadrine citrate 100 mg Oral Tablet Sustained Release - take 1 tablet by ORAL route 2 times per day As needed; 20 tablet; Refills: 0, [facility] Product Selection Permitted Signatures: Dispatcher [employer] Oswald Guzmán PA PA jmm Prokisch, Amanda, RN RN ap3 Elsie Iqbal RN RN jh5 Rudolph Egan RN RN as6
--- NOTE | 2022-10-09 19:07 | ER ---
Nurse's Notes [facility] Name: Sobia Stoll Age: 81 yrs Sex: Male : 1940 Arrival Date: 10/09/2022 Time: 16:35 Bed 11 Private MD: Diagnosis: Strain of muscle, fascia and tendon at neck level Presentation: 10/09 16:48 Chief complaint: Patient states: neck stiffness; sore to touch posterior neck and jh5 moving up into head and causing jaw locking and stiffness. Went to doctor and was given muscle relaxants yesterday but not helping; noted that patient did ride on a bus all the way to [place] and then rode on a bus all the way back as well. Coronavirus screen: Vaccine status: Patient reports receiving the 2nd dose of the covid vaccine. Client indicates they have traveled out of the [place] in the last 14 days. Client traveled to: [place]; got here 2 days ago. Ebola Screen: Patient negative for fever greater than or equal to 101.5 degrees Fahrenheit, and additional compatible Ebola Virus Disease symptoms Patient denies exposure to infectious person. Patient denies travel to an Ebola-affected area in the 21 days before illness onset. Initial Sepsis Screen: Does the patient meet any 2 criteria? No. Patient's initial sepsis screen is negative. Does the patient have a suspected source of infection? No. Patient's initial sepsis screen is negative. Risk Assessment: Do you want to hurt yourself or someone else? Patient reports no desire to harm self or others. 16:48 Method Of Arrival: Ambulatory [facility] 16:48 Acuity: ALTA 3 jh5 17:12 Onset of symptoms was October 05, 2022. ap3 Triage Assessment: 16:51 Headache History: Denies prior headaches. General: Appears uncomfortable, well groomed, jh5 well developed, Behavior is calm, cooperative, appropriate for age. Pain: Complains of pain in posterior neck Pain currently is 8 out of 10 on a pain scale. at worst was 10 out of 10 on a pain scale. Pain began gradually. Neuro: No deficits noted. 17:13 Pain: Also complains of. ap3 Historical: - Allergies: 16:51 No Known Allergies; jh5 - PMHx: 16:51 Hypercholesterolemia; Osteoarthritis; 5 - Immunization history:: Adult Immunizations up to date. - Social history:: Smoking status: Patient denies any tobacco usage or history of. Screenin:11 [facility] ED Fall Risk Assessment (Adult) History of falling in the last 3 months, ap3 including since admission No falls in past 3 months (0 pts). Abuse screen: Denies threats or abuse. Nutritional screening: No deficits noted. Tuberculosis screening: No symptoms or risk factors identified. Vital Signs: 16:48 BP 145 / 76; Pulse 85; Resp 16; Temp 98.4; Pulse Ox 97% ; Weight 81.65 kg; Height 5 ft. 5 3 in. (160.02 cm); Pain 8/10; 16:48 Body Mass Index 31.89 (81.65 kg, 160.02 cm) 5 ED Course: 16:35 Patient arrived in ED. am2 16:51 Triage completed. 5 16:51 Arm band placed on right wrist. [facility] 16:54 Oswald Houser PA is [facility]. [facility] 16:54 Kiel Rae MD is Attending Physician. [facility] 17:10 Karmen Hill, RN is Primary Nurse. ap3 17:11 No provider procedures requiring assistance completed. ap3 17:12 Patient has correct armband on for positive identification. Bed in low position. Call ap3 light in reach. Adult w/ patient. Door closed. Noise minimized. Warm blanket given. Administered Medications: 17:11 Drug: Valium (diazepam) 5 mg Route: PO; ap3 18:27 Follow up: Response: No adverse reaction ap3 17:11 Drug: [place] (HYDROcodone-acetaminophen) 10 mg-325 mg 1 tabs Route: PO; ap3 18:27 Follow up: Response: No adverse reaction; Pain is decreased ap3 19:14 Drug: Decadron (dexamethasone) 10 mg Route: IM; Site: left deltoid; as6 Medication: 19:15 VIS not applicable for this client. as6 Outcome: 19:06 Discharge ordered by . [facility] 19:30 Patient left the ED. [facility] Signatures: Oswald Houser PA PA jmm Moreno, Amanda am2 Karmen Hill RN RN ap3 Elsie Iqbal RN RN [facility] Rudolph Egan RN RN as6 Corrections: (The following items were deleted from the chart) 16:52 16:48 Chief complaint: Patient states: neck stiffness; sore to touch posterior neck and jh5 moving up into head and causing jaw locking and stiffness. Went to doctor and was given muscle relaxants yesterday but not helping jh5
[2022-10-09] MEDS ORDERED: dexAMETHasone 10 MG/ML VIAL ONE (19:12)
[2022-10-09 19:51] VITALS: BP 145/76; TEMP 98.4; O2SAT 97
== END 2022-10-09 19:30 | disposition home or self-care (01) ==
LOC: ER 16:33
DX: S16.1XXA Strain of muscle, fascia and tendon at neck level, initial encounter (principal); E78.00 Pure hypercholesterolemia, unspecified
CPT/HCPCS: 70450; 72125; J1100; 96372; 99282